=== PATIENT | female | born 1995 | race Caucasian/White ===

== ENCOUNTER 2019-06-23 09:58 | Emergency (ER) | payer OTHER ==
[2019-06-23] MEDS ORDERED: LIDOCAINE 2% VISCOUS SOLN 20 ML UDCUP PO ONE (11:08)
[2019-06-23] MEDS ORDERED: METOCLOPRAMIDE HCL ORAL SOLN 10 MG/10 ML UDCUP PO ONE (11:08)
[2019-06-23] MEDS ORDERED: MAG HYDROX/AL HYDROX/SIMETH SUSP 30 ML UDCUP PO ONE (11:08)
--- NOTE | 2019-06-23 11:10 | ER Document Report ---
ED Medical Screen (RME) - General Chief Complaint: Chest Pain Stated Complaint: CHEST PAIN Time Seen by Provider: 06/23/19 11:04 Mode of Arrival: Ambulatory Information source: Patient Notes: This 23-year-old female with history of questionable cardiac disease questionable valve leakage presents to the emergency department with complaints of epigastric pain that increases when she eats or drinks anything. Denies fever vomiting diarrhea. Reports symptoms started yesterday. I have greeted and performed a rapid initial assessment of this patient. A comprehensive ED assessment and evaluation of the patient, analysis of test results and completion of the medical decision making process will be conducted by additional ED providers. Dictation of this chart was performed using voice recognition software; therefore, there may be some unintended grammatical errors. TRAVEL OUTSIDE OF THE [place] IN LAST 30 DAYS: No - Related Data Allergies/Adverse Reactions: No Known Allergies Allergy (Verified 06/23/19 10:50) Past Medical History - Social History Chew tobacco use (# tins/day): No Frequency of alcohol use: Occasional Drug Abuse: None Physical Exam - Vital signs Vitals: Temp Pulse Resp BP Pulse Ox 98.2 F 64 18 129/70 H 98 06/23/19 10:33 06/23/19 10:33 06/23/19 10:33 06/23/19 10:33 06/23/19 10:33 Course - Vital Signs Vital signs: Temp Pulse Resp BP Pulse Ox 98.2 F 64 18 129/70 H 98 06/23/19 10:50 06/23/19 10:33 06/23/19 10:50 06/23/19 10:33 06/23/19 10:50
[2019-06-23 12:05] LABS: ABSOLUTE BASOPHILS # (AUTO) 0.1 10^3/uL (0.0-0.2); ABSOLUTE EOSINOPHILS # (AUTO) 0.2 10^3/uL (0.0-0.6); ABSOLUTE MONOCYTES (AUTO) 0.4 10^3/uL (0.1-1.4); BASOPHILS % (AUTO) 0.9 % (0-2); TOTAL CELLS COUNTED % (AUTO) 100 %
[2019-06-23 12:09] LABS: APPEARANCE,URINE CLEAR; BILIRUBIN,URINE NEGATIVE (NEGATIVE); COLOR,URINE YELLOW; GLUCOSE, URINE NEGATIVE (NEGATIVE); KETONES,URINE NEGATIVE (NEGATIVE); LEUKOCYTE ESTERASE,URINE NEGATIVE (NEGATIVE); NITRITE,URINE NEGATIVE (NEGATIVE); PROTEIN,URINE NEGATIVE (NEGATIVE); URINE SPECIFIC GRAVITY 1.011; UROBILINOGEN,URINE NEGATIVE mg/dL (<2.0)
[2019-06-23 12:18] LABS: ABSOLUTE LYMPHOCYTES (AUTO) 2.1 10^3/uL (0.5-4.7); ABSOLUTE NEUT (AUTO) 3.5 10^3/uL (1.7-8.2); EOSINOPHILS % (AUTO) 3.9 % (0-6); HEMATOCRIT 38.3 % (36.0-47.0); HEMOGLOBIN 12.7 g/dL (12.0-15.5); LYMPHOCYTES % (AUTO) 33.4 % (13-45); MEAN CORPUSCULAR HEMOGLOBIN 28.1 pg (27.0-33.4); MEAN CORPUSCULAR HGB CONC 33.1 g/dL (32.0-36.0); MEAN CORPUSCULAR VOLUME 85 fl (80-97); MONOCYTES % (AUTO) 6.2 % (3-13); PLATELET COUNT 240 10^3/uL (150-450); RED BLOOD COUNT 4.51 10^6/uL (3.72-5.28); RED CELL DISTRIBUTION WIDTH 13.7 % (11.5-14.0); SEGMENTED NEUTROPHILS % (AUTO) 55.6 % (42-78); WHITE BLOOD COUNT 6.3 10^3/uL (4.0-10.5)
[2019-06-23 12:22] LABS: ALBUMIN 4.4 g/dL (3.5-5.0); ALKALINE PHOSPHATASE 41 U/L (38-126); ANION GAP 11 (5-19); ASPARTATE AMINO TRANSFERASE 20 U/L (14-36); BILIRUBIN,DIRECT 0.1 mg/dL (0.0-0.4); BILIRUBIN,TOTAL 0.5 mg/dL (0.2-1.3); BLOOD UREA NITROGEN 10 mg/dL (7-20); CALCIUM 9.8 mg/dL (8.4-10.2); CARBON DIOXIDE 25 mmol/L (22-30); CHLORIDE 103 mmol/L (98-107); GLUCOSE 84 mg/dL (75-110); TOTAL PROTEIN 7.3 g/dL (6.3-8.2)
--- NOTE | 2019-06-23 14:54 | EKG REPORT ---
SEVERITY:- OTHERWISE NORMAL ECG - SINUS RHYTHM LATERAL Q WAVES, PROBABLY NORMAL VARIATION : Confirmed by: Steven Haywood MD 23-Jun-2019 14:52:21
[2019-06-23] MEDS ORDERED: ONDANSETRON 4 MG TAB.RAPDIS PO ONE (15:29)
[2019-06-23] MEDS ORDERED: KETOROLAC TROMETHAMINE 10 MG TABLET PO ONE (15:30)
--- NOTE | 2019-06-23 15:58 | RADIOLOGY REPORT (SQ) ---
EXAM DESCRIPTION: CHEST 2 VIEWS COMPLETED DATE/TIME: 06/23/2019 3:51 pm REASON FOR STUDY: chest pain COMPARISON: None. TECHNIQUE: Frontal and lateral radiographic views of the chest acquired. NUMBER OF VIEWS: Two view. LIMITATIONS: None. FINDINGS: LUNGS AND PLEURA: No opacities, masses or pneumothorax. No pleural effusion. MEDIASTINUM AND HILAR STRUCTURES: No masses or contour abnormalities. HEART AND VASCULAR STRUCTURES: Heart normal size. No evidence for failure. BONES: No acute findings. HARDWARE: None in the chest. OTHER: No other significant finding. IMPRESSION: NO SIGNIFICANT RADIOGRAPHIC FINDING IN THE CHEST. TECHNICAL DOCUMENTATION: JOB ID: [id number] [employer]- All Rights Reserved Reading location - IP/workstation name: [email or web address]
--- NOTE | 2019-06-23 16:32 | ER Document Report ---
Entered by ABDULLAHI LANTIGUA SCRIBE 06/23/19 1533 Acting as scribe for:SHUN POSADAS IV, MD ED General - General Chief Complaint: Chest Pain Stated Complaint: CHEST PAIN Time Seen by Provider: 06/23/19 11:04 Primary Care Provider: DOMINIC LOPEZ PA-C [Primary Care Provider] - Follow up as needed Mode of Arrival: Ambulatory Information source: Patient Notes: This 23-year-old female patient presents to the emergency department today with complaints of reproducible chest pain which she first noticed yesterday morning upon awakening. Patient states that the pain yesterday morning was very mild, stating that she took ibuprofen which completely took away the pain. Patient states today when she woke up the pain was worse than yesterday. Patient states she went to work today and shortly after getting to work the pain became "much more sharp and more severe" than yesterday. Patient's pain is reproducible with certain movements, breathing, coughing, eating, or drinking. Patient states she was given a GI cocktail in triage which "did nothing for the pain". Patient states "it only made my mouth numb". Patient states that she has had intermittent nausea but denies cough, vomiting, history of GERD, history of pancreatitis, or history of gallbladder issues. TRAVEL OUTSIDE OF THE [place] IN LAST 30 DAYS: No - Related Data Allergies/Adverse Reactions: No Known Allergies Allergy (Verified 06/23/19 10:50) Past Medical History - General Information source: Patient - Social History Smoking Status: Never Smoker Cigarette use (# per day): No Chew tobacco use (# tins/day): No Frequency of alcohol use: Occasional Drug Abuse: None Lives with: Family Family History: Reviewed & Not Pertinent Patient has suicidal ideation: No Patient has homicidal ideation: No Past Surgical History: Reports: Hx Tonsillectomy, Other - remote hx of mitral valve prolapse"corrected itself" per recent echo per pt Review of Systems - Review of Systems Constitutional: No symptoms reported EENT: No symptoms reported Cardiovascular: See HPI, Chest pain - reproducible Respiratory: See HPI, Hurts to breathe. denies: Cough Gastrointestinal: See HPI, Nausea. denies: Vomiting Genitourinary: No symptoms reported Female Genitourinary: No symptoms reported Musculoskeletal: No symptoms reported Skin: No symptoms reported Hematologic/Lymphatic: No symptoms reported Neurological/Psychological: No symptoms reported -: Yes All other systems reviewed and negative Physical Exam - Vital signs Vitals: Temp Pulse Resp BP Pulse Ox 98.2 F 64 18 129/70 H 98 06/23/19 10:33 06/23/19 10:33 06/23/19 10:33 06/23/19 10:33 06/23/19 10:33 - Notes Notes: Physical Exam: General: Alert, appears well but slightly anxious. HEENT: Normocephalic. Atraumatic. PERRL. Extraocular movements intact. Oropharynx clear. Neck: Supple. Non-tender. Respiratory: No respiratory distress. Clear and equal breath sounds bilaterally. Reproducible chest pain with deep breathing and coughing. No chest wall tenderness with palpation. Cardiovascular: Regular rate and rhythm. Abdominal: Normal Inspection. Non-tender. No distension. Normal Bowel Sounds. Back: No gross abnormalities. Extremities: Moves all four extremities. Upper extremities: Normal inspection. Normal ROM. Lower extremities: Normal inspection. No edema. Normal ROM. Neurological: Normal cognition. AAOx4. Normal speech. Psychological: Appears anxious Skin: Warm. Dry. Normal color. Course - Vital Signs Vital signs: Temp Pulse Resp BP Pulse Ox 97.5 F 68 16 113/65 100 06/23/19 15:37 06/23/19 15:37 06/23/19 15:37 06/23/19 15:37 06/23/19 15:37 - Laboratory Result Diagrams: 06/23/19 11:40 06/23/19 11:40 - Diagnostic Test Radiology reviewed: Reports reviewed - EKG Interpretation by Me Additional EKG results interpreted by me: 06/23/19 16:55 EKG performed on 06/23/2019 at 1003 hours was interpreted by this physician. Findings: Normal sinus rhythm, heart rate 67, normal axis, P waves preceding QRS complexes, QRS complexes appear narrow, there are no ST segment elevation or depression segments to indicate acute myocardial ischemia or infarction. Impression normal sinus rhythm with nonspecific ST segments. Discharge - Discharge Clinical Impression: Pleurisy Condition: Good Disposition: HOME, SELF-CARE Additional Instructions: Return to the Emergency Department without delay if any worse. Pleurisy Your chest pain has been diagnosed as pleuritis (pleurisy). This is an inflammation of the surface of the lung tissue. It can be caused by a virus or, occasionally, old scar tissue. It is painful but, for the most part, not a serious problem. This pain is usually made worse by deep breathing, coughing, or sudden movements of the upper body or arms. The treatment is relief of symptoms. It includes rest, antiinflammatory medication, and pain medicine. Resolution of the pain is usually rapid once antiinflammatory medication is started. Warning signs of a more serious problem include: a fever, shortness of breath, pain that radiates to your jaw, shoulders or arms, or coughing up bloody sputum. If any of these symptoms occur, call the physician at once. HOME CARE INSTRUCTIONS & INFORMATION: Thank you for choosing us for your medical needs. We hope you're satisfied with the care you received. After you leave, you must properly care for your problem and, at the same time, observe its progress. Any condition can change. Some illnesses can change rapidly over hours or days. If your condition worsens, return to the Emergency Department or see your physician promptly. ABOUT YOUR X-RAYS AND EKG'S: If you had an EKG or X-rays taken, they have been read by the Emergency Physician. The X-rays and EKG's will also be read by a Radiologist or Printing Shop Supervisor within 24 hours. If discrepancies are noted, you w ill be notified by telephone. Please be certain the ED has a correct telephone number & address where you can be reached. Also, realize that some fractures or abnormalities do not show up on initial X-rays. If your symptoms continue, see your physician. ABOUT YOUR LABORATORY TEST: If you had laboratory tests, the results have been reviewed by the Emergency Physician. Some test results (for example cultures) may not be available for several days. You will be contacted if any test result shows you need additional treatment. Please be certain the ED has a correct telephone number and address where you can be reached. ABOUT YOUR MEDICATIONS: You will receive instructions on how to take your medicine on the prescription label you receive. Additional information may be provided by the Pharmacy. If you have questions afterwards, call the ED for clarification or further instructions. Some prescribed medications may cause drowsiness. Do not perform tasks such as driving a car or operating machinery without consulting your Pharmacist. If you feel you need a refill of pain medic ation, your condition will need re-evaluation. Please do not call for a refill of any medication. ABOUT YOUR SIGNATURE: Signature of this document acknowledges to followin. Understanding that you received emergency treatment and that you may be released before al medical problems are known or treated. Please be certain the ED has a correct phone number & address where you can be reached. 2. Acknowledgement that you will arrange for follow-up care as recommended. 3. Authorization for the Emergency Physician to provide information to your follow-up Physician in order to maximize your care. AT ANY TIME, IF YOUR SYMPTOMS CHANGE SIGNIFICANTLY OR WORSEN OR YOU DEVELOP NEW SYMPTOMS, RETURN TO THE EMERGENCY DEPARTMENT IMMEDIATELY FOR RE-EVALUATION. OUR GOAL IS TO PROVIDE EXCELLENT MEDICAL CARE! WE HOPE THAT WE HAVE MET YOUR EXPECTATIONS DURING YOUR EMERGENCY DEPARTMENT VISIT AND THAT YOU FEEL YOU HAVE RECEIVED EXCELLENT CARE! Prescriptions: Ketorolac Tromethamine [Toradol 10 mg Tablet] 10 mg PO Q6HP PRN 3 Days #12 tablet PRN Reason: pain Ondansetron [Zofran Odt 4 mg Tablet] 1 - 2 tab PO Q4H PRN #15 tab.rapdis PRN Reason: For Nausea/Vomiting Forms: Return to Work Referrals: DOMINIC LOPEZ PA-C [Primary Care Provider] - Follow up as needed I personally performed the services described in the documentation, reviewed and edited the documentation which was dictated to the scribe in my presence, and it accurately records my words and actions.
[2019-06-23 17:19] VITALS: BP 98/67
== END 2019-06-23 17:17 | disposition home or self-care (01) ==
LOC: EDBD → ER 09:58
DX: R09.1 Pleurisy (principal); R07.1 Chest pain on breathing; R11.0 Nausea
CPT/HCPCS: 93005; 36415; 83690; 85025; 81025; 80053; 81001; 71046; 93010; S0119; J3490 ×2; 99285

== ENCOUNTER 2019-07-22 15:57 | Emergency (ER) | payer OTHER ==
--- NOTE | 2019-07-22 16:38 | ER Document Report ---
ED Medical Screen (RME) - General Chief Complaint: Chest Pain Stated Complaint: CHEST PAIN/NAUSEA Time Seen by Provider: 07/22/19 16:32 Primary Care Provider: DOMINIC LOPEZ PA-C [Primary Care Provider] - Follow up as needed Mode of Arrival: Ambulatory Information source: Patient Notes: 23-year-old female presents emergency department complaints of epigastric chest pain. Reports she had the same symptoms approximately 1 month ago was evaluated here. She did not follow-up with anybody. She reports the pain worsens when she eats. She reports she did receive a GI cocktail last time she was here but it made her feel worse. Denies fever vomiting diarrhea. I have greeted and performed a rapid initial assessment of this patient. A comprehensive ED assessment and evaluation of the patient, analysis of test results and completion of the medical decision making process will be conducted by additional ED providers. TRAVEL OUTSIDE OF THE [place] IN LAST 30 DAYS: No - Related Data Allergies/Adverse Reactions: No Known Allergies Allergy (Verified 07/22/19 16:18) Home Medications: BCP Past Medical History - Social History Chew tobacco use (# tins/day): No Frequency of alcohol use: Rare Drug Abuse: None Past Surgical History: Reports: Hx Tonsillectomy, Other - remote hx of mitral valve prolapse"corrected itself" per recent echo per pt Physical Exam - Vital signs Vitals: Temp Pulse Resp BP Pulse Ox 98.5 F 79 16 130/66 H 99 07/22/19 16:10 07/22/19 16:10 07/22/19 16:10 07/22/19 16:10 07/22/19 16:10 Course - Vital Signs Vital signs: Temp Pulse Resp BP Pulse Ox 98.5 F 79 16 130/66 H 99 07/22/19 16:10 07/22/19 16:10 07/22/19 16:10 07/22/19 16:10 07/22/19 16:10 Doctor's Discharge - Discharge Referrals: DOMINIC LOPEZ PA-C [Primary Care Provider] - Follow up as needed
[2019-07-22 17:03] LABS: ABSOLUTE BASOPHILS # (AUTO) 0.1 10^3/uL (0.0-0.2); ABSOLUTE EOSINOPHILS # (AUTO) 0.9 10^3/uL (0.0-0.6); ABSOLUTE LYMPHOCYTES (AUTO) 1.9 10^3/uL (0.5-4.7); ABSOLUTE MONOCYTES (AUTO) 0.5 10^3/uL (0.1-1.4); ABSOLUTE NEUT (AUTO) 3.2 10^3/uL (1.7-8.2); BASOPHILS % (AUTO) 0.9 % (0-2); EOSINOPHILS % (AUTO) 13.6 % (0-6); HEMOGLOBIN 12.5 g/dL (12.0-15.5); MEAN CORPUSCULAR HEMOGLOBIN 28.8 pg (27.0-33.4); MEAN CORPUSCULAR HGB CONC 33.8 g/dL (32.0-36.0); MEAN CORPUSCULAR VOLUME 85 fl (80-97); MONOCYTES % (AUTO) 7.3 % (3-13); PLATELET COUNT 253 10^3/uL (150-450); RED BLOOD COUNT 4.34 10^6/uL (3.72-5.28); RED CELL DISTRIBUTION WIDTH 14.5 % (11.5-14.0); SEGMENTED NEUTROPHILS % (AUTO) 49.2 % (42-78); TOTAL CELLS COUNTED % (AUTO) 100 %; WHITE BLOOD COUNT 6.5 10^3/uL (4.0-10.5)
[2019-07-22 17:08] LABS: APPEARANCE,URINE CLEAR; BILIRUBIN,URINE NEGATIVE (NEGATIVE); COLOR,URINE STRAW; GLUCOSE, URINE NEGATIVE (NEGATIVE); KETONES,URINE NEGATIVE (NEGATIVE); LEUKOCYTE ESTERASE,URINE NEGATIVE (NEGATIVE); NITRITE,URINE NEGATIVE (NEGATIVE); PROTEIN,URINE NEGATIVE (NEGATIVE); URINE SPECIFIC GRAVITY 1.008; UROBILINOGEN,URINE NEGATIVE mg/dL (<2.0)
[2019-07-22 17:22] LABS: ALBUMIN 4.2 g/dL (3.5-5.0); ALKALINE PHOSPHATASE 40 U/L (38-126); ANION GAP 11 (5-19); ASPARTATE AMINO TRANSFERASE 20 U/L (14-36); BILIRUBIN,DIRECT 0.3 mg/dL (0.0-0.4); BILIRUBIN,TOTAL 0.3 mg/dL (0.2-1.3); BLOOD UREA NITROGEN 10 mg/dL (7-20); CALCIUM 9.5 mg/dL (8.4-10.2); CARBON DIOXIDE 24 mmol/L (22-30); CHLORIDE 105 mmol/L (98-107); GLUCOSE 111 mg/dL (75-110); POTASSIUM 4.3 mmol/L (3.6-5.0); TOTAL PROTEIN 7.2 g/dL (6.3-8.2)
--- NOTE | 2019-07-22 18:25 | RADIOLOGY REPORT (SQ) ---
EXAM DESCRIPTION: CHEST 2 VIEWS COMPLETED DATE/TIME: 07/22/2019 6:16 pm REASON FOR STUDY: epigastric chest pain COMPARISON: 06/23/2019 TECHNIQUE: Frontal and lateral radiographic views of the chest acquired. NUMBER OF VIEWS: Two view. LIMITATIONS: None. FINDINGS: LUNGS AND PLEURA: No pneumothorax. No consolidation or pleural effusion. MEDIASTINUM AND HILAR STRUCTURES: Stable. HEART AND VASCULAR STRUCTURES: Stable. BONES: No acute findings. HARDWARE: None in the chest. OTHER: No other significant finding. IMPRESSION: NO ACUTE FINDINGS. TECHNICAL DOCUMENTATION: JOB ID: [id number] [employer]- All Rights Reserved Reading location - IP/workstation name: [email or web address]
[2019-07-22] MEDS ORDERED: FAMOTIDINE 20 MG TABLET PO ONE (19:04)
--- NOTE | 2019-07-22 19:10 | ER Document Report ---
ED General - General Chief Complaint: Chest Pain Stated Complaint: CHEST PAIN/NAUSEA Time Seen by Provider: 07/22/19 16:32 Primary Care Provider: DOMINIC LOPEZ PA-C [Primary Care Provider] - Follow up as needed Mode of Arrival: Ambulatory TRAVEL OUTSIDE OF THE [place] IN LAST 30 DAYS: No - HPI Onset: Other - over the last month Onset/Duration: Gradual Quality of pain: Burning, Sharp Severity: Moderate Associated symptoms: None Exacerbated by: Deep breathing, Food Relieved by: Denies Similar symptoms previously: No Recently seen / treated by doctor: Yes - 06/23/19 in this ER for same symptoms. Diagnosed with Pleurisy then. Notes: 23 year old female with no significant PMH here for epigastric abdominal pains and lower chest pains for the last month of so. The patient was seen in this ER on 06/23/19 and she was diagnosed with Pleuresy then. The patient was prescribed Toroadol and she says this initially seemed to work but then the pain just came back. The patient says eating makes the pain worse and so does taking a deep breath. The patient denies fevers, chills, sweats, nausea, vomiting, sweating. The patient has no history of gallstones or kidney stones. - Related Data Allergies/Adverse Reactions: No Known Allergies Allergy (Verified 07/22/19 16:18) Home Medications: BCP Past Medical History - General Information source: Patient - Social History Smoking Status: Never Smoker Chew tobacco use (# tins/day): No Frequency of alcohol use: Occasional Drug Abuse: None Family History: Reviewed & Not Pertinent Patient has suicidal ideation: No Patient has homicidal ideation: No - Past Medical History Cardiac Medical History: Reports: None Pulmonary Medical History: Reports: None EENT Medical History: Reports: None Neurological Medical History: Reports: None Endocrine Medical History: Reports: None Renal/ Medical History: Reports: None Malignancy Medical History: Reports: None GI Medical History: Reports: None Musculoskeletal Medical History: Reports None Skin Medical History: Reports None Psychiatric Medical History: Reports: None Traumatic Medical History: Reports: None Infectious Medical History: Reports: None Past Surgical History: Reports: Hx Tonsillectomy, Other - remote hx of mitral valve prolapse"corrected itself" per recent echo per pt Review of Systems - Review of Systems Constitutional: No symptoms reported EENT: No symptoms reported Cardiovascular: Chest pain Respiratory: No symptoms reported Gastrointestinal: Abdominal pain Genitourinary: No symptoms reported Female Genitourinary: No symptoms reported Musculoskeletal: No symptoms reported Skin: No symptoms reported Hematologic/Lymphatic: No symptoms reported Neurological/Psychological: No symptoms reported Physical Exam - Vital signs Vitals: Temp Pulse Resp BP Pulse Ox 98.5 F 79 16 130/66 H 99 07/22/19 16:10 07/22/19 16:10 07/22/19 16:10 07/22/19 16:10 07/22/19 16:10 - Notes Notes: GENERAL: Well-appearing, well-nourished and in no acute distress. HEAD: Atraumatic, normocephalic. EYES: Pupils equal round and reactive to light, extraocular movements intact, sclera anicteric, conjunctiva are normal. ENT: TMs normal, nares patent, oropharynx clear without exudates. Moist mucous membranes. NECK: Normal range of motion, supple without lymphadenopathy or JVD. LUNGS: Breath sounds clear to auscultation bilaterally and equal. No wheezes rales or rhonchi. HEART: Regular rate and rhythm without murmurs, rubs or gallops. ABDOMEN: Soft, mild tenderness in epigastric area, normoactive bowel sounds. No guarding, no rebound. No masses appreciated. EXTREMITIES: Normal range of motion, no pitting or edema. No clubbing or cyanosis. NEUROLOGICAL: Cranial nerves II through XII grossly intact. Normal speech, normal gait. PSYCH: Normal mood, normal affect. SKIN: Warm, Dry, normal turgor, no rashes or lesions noted. Course - Re-evaluation Re-evalutation: 07/22/19 19:21 The patient has been having off and on epigastric and low chest pain. Food and taking deep breaths seem to the make the pain worse. The patient sounds to me like she is having significant GERD vs an Ulcer but the patient could be having gallbladder issues as well. The patient is very low risk for ACS, she is PERC negative making PE unlikely, and her chest xrays have been clear. Patient's labs are unremarkable. Patient was told to use a PPI for 2 weeks and to follow up with a GI Doctor if symptoms persist. - Vital Signs Vital signs: Temp Pulse Resp BP Pulse Ox 98.5 F 79 16 130/66 H 99 07/22/19 16:10 07/22/19 16:10 07/22/19 16:10 07/22/19 16:10 07/22/19 16:10 - Laboratory Result Diagrams: 07/22/19 16:49 07/22/19 16:49 Laboratory results interpreted by me: 07/22/19 07/22/19 16:49 16:49 RDW 14.5 H Eos % (Auto) 13.6 H Absolute Eos (auto) 0.9 H Glucose 111 H Discharge - Discharge Clinical Impression: Epigastric abdominal pain Acid reflux Qualifiers: Esophagitis presence: without esophagitis Qualified Code(s): K21.9 - Gastro-eso phageal reflux disease without esophagitis Condition: Stable Disposition: HOME, SELF-CARE Instructions: Abdominal Pain ([facility]), Chest Pain of Unclear Cause ([facility]) Additional Instructions: Take Protonix as prescribed or buy another generic Proton Pump Inhibitor (PPI) and use it twice a day for 2 weeks. Follow up with a GI Doctor if symptoms persist for further work up and treatment. Prescriptions: Pantoprazole Sodium [Protonix] 40 mg PO BID #28 tablet. Referrals: DOMINIC LOPEZ PA-C [Primary Care Provider] - Follow up as needed MARTIN RIDLEY MD [ACTIVE STAFF] - Follow up as needed
[2019-07-22 19:48] VITALS: BP 111/75
--- NOTE | 2019-07-23 00:17 | EKG REPORT ---
SEVERITY:- OTHERWISE NORMAL ECG - SINUS RHYTHM LATERAL Q WAVES, PROBABLY NORMAL VARIATION : Confirmed by: Liset Mendez 23-Jul-2019 00:16:46
== END 2019-07-22 19:46 | disposition home or self-care (01) ==
LOC: ER 15:57
DX: R07.9 Chest pain, unspecified (principal); K21.9 Gastro-esophageal reflux disease without esophagitis; R11.0 Nausea; R10.13 Epigastric pain
CPT/HCPCS: 36415; 71046; 80053; 81001; 81025; 83690; 85025; 93005; 93010; 99284

== ENCOUNTER 2019-08-29 06:42 | Day surgery (SDC) | payer OTHER ==
[~2019-08-29 06:42] MED LIST: CEFAZOLIN 1 GM/D5W RTU 1 GM/50 ML RTUPB IV PRN; LACTATED RINGERS 1000 ML IV PRN; LIDOCAINE 0.5% INJ-PF (5 MG/ML) 50 ML SDV SUBCUT PRN
[2019-08-29] MEDS ORDERED: ONDANSETRON HCL INJ/PF 4 MG/2 ML SDV ONE (06:44)
[2019-08-29] MEDS ORDERED: MIDAZOLAM 2 MG/2 ML INJ ONE (06:44)
[2019-08-29] MEDS ORDERED: PROPOFOL INJ 200 MG/20 ML VIAL IV ONE (06:45)
[2019-08-29] MEDS ORDERED: MORPHINE SULFATE 10 MG/ML INJ ONE (06:45)
[2019-08-29] MEDS ORDERED: DEXAMETHASONE SOD PHOSPHATE INJ 4 MG/1 ML VIAL ONE (06:45)
[2019-08-29] MEDS ORDERED: LIDOCAINE 2% INJ (20 MG/ML) 20 ML MDV ONE (06:46)
[2019-08-29] MEDS ORDERED: BUPIVACAINE HCL 0.5 % INJ/PF 30 ML SDV ONE (06:46)
[2019-08-29] MEDS ORDERED: NORMAL SALINE INJ/PF 0.9% 10 ML SDV ONE (07:11)
[2019-08-29] MEDS ORDERED: POLYMYXIN B SULFATE INJ 500000 UNIT VIAL ONE (07:11)
[2019-08-29] MEDS ORDERED: BACITRACIN INJ 50,000 UNIT VIAL ONE (07:12)
[2019-08-29] MEDS: BUPIVACAINE INJ/PF LIPOSOME/PF 266 MG/20 ML SDV ONE ×2 (08:43→09:00)
--- NOTE | 2019-08-29 09:52 | Operative Report ---
Operative Report DATE OF SURGERY: 08/29/19 PREOPERATIVE DIAGNOSIS: Hallux abductovalgus left foot. POSTOPERATIVE DIAGNOSIS: Hallux abductovalgus left foot. OPERATION: Correction of bunion by Sal osteotomy with internal screw fixation left foot. SURGEON: MICHAEL WHITE WATER TECHNICIAN: AIME DIAZ ANESTHESIA: LMAC TISSUE REMOVED OR ALTERED: Bone, not sent to pathology. COMPLICATIONS: None. ESTIMATED BLOOD LOSS: Less than 0.1 mL INTRAOPERATIVE FINDINGS: Hypertrophied medial eminence first metatarsal head left foot. PROCEDURE: Following induction of IV and regional local anesthesia the left foot and leg were prepped and draped in the usual sterile manner. A pneumatic tourniquet was placed around the left ankle and inflated to 250 mm of mercury after exsanguination of the limb via Esmarch bandage. The following surgical procedure was then performed: Correction of bunion by Sal osteotomy with internal screw fixation left foot. Attention was directed to the dorsal aspect of the first metatarsal phalangeal joint of the left foot where an approximately 5 cm dorsal linear incision was made. The incision was deepened via sharp dissection and all bleeders were clamped and bovied as necessary for the purposes of hemostasis. A capsular incision was made in the same manner as the original skin incision and medial to the extensor hallucis longus tendon. The capsule was reflected medially and laterally from the bone thus bringing into view the hypertrophied medial eminence of the first metatarsal head. Utilizing a Chama sagittal saw the hypertrophied medial eminence was osteotomized parallel to the long axis of the bone and removed in toto from the wound. Attention was then directed into the first interspace, utilizing blunt dissection the transverse adductor tendon was identified and isolated, then sharply incised. Attention was then directed back to the medial aspect of the first metatarsal head, where utilizing a Rosaura sagittal saw an Sal osteotomy was performed with the apex being distal and the dorsal and plantar wings at 60 degree angle. The capital fragment was then distracted and shifted laterally on the metatarsal by approximately 5 mm. An x- ray was taken and it was noted that the first metatarsal phalangeal joint was now in a more anatomically correct position and that the sesamoids were directly underneath the first metatarsal head. The osteotomy was then temporarily fixated utilizing a 4 5 guidewire which was directed from distal dorsal to plantar proximal. The reamer measure was then threaded down the guidewire a hole was made for the head of the screw it was noted that a 24 mm 3.0 cancellus screw would be needed. Utilizing a 2.0 drill bit, the distal aspect of the osteotomy was overdrilled. The 24 mm 3.0 cancellus screw was then threaded down the guidewire and tightened down until the osteotomy was stably fixated. An x- ray was taken to ensure that the screw was the proper length and that 2 threads were through the plantar cortex of the metatarsal. Utilizing a Cardoz sagittal saw the redundant bone on the medial aspect of the first metatarsal head was osteotomized parallel to the bone and removed in toto from the wound. Utilizing a Cardoz crosscut rasp the medial aspect of the first metatarsal head was then rasped smooth. The wound was then flushed with copious amounts of an antibacterial saline solution. Bone wax was then applied to the medial aspect of the first metatarsal head. The capsule was then coaptated and maintained utilizing simple interrupted sutures of 3-0 Vicryl. The extensor hallucis longus tendon was tacked medially utilizing simple interrupted sutures of 3-0 Vicryl. The subcutaneous tissue was coaptated and maintained utilizing simple interrupted sutures of 4-0 Vicryl. 18 mL of Exparel were then injected along the incision site and the surgical site. The skin was then coaptated and maintained utilizing a running subcuticular suture of 5-0 Vicryl. Benzoin and Steri-Strips were then applied to the incision. A dry sterile dressing was then applied consisting of Gonzalez silk, 4 x 4's, conform, Kerlix, and Coflex. The pneumatic tourniquet was released it was noted that all digits were warm and viable and the patient was transferred to the recovery room.
--- NOTE | 2019-08-29 09:56 | PDOC DISCHARGE SUMMARY ---
Discharge Summary-[facility] Discharge Summary: Date of admission: August 29, 2019. Date of discharge: August 29, 2019. Preoperative diagnosis: Hallux abductovalgus left foot. Surgical procedure performed: Correction of bunion by Sal osteotomy with internal screw fixation left foot. Postoperative diagnosis: Hallux abductovalgus left foot. Surgeon: Ayesha Moon D.P.M. Political Anthropologist: Josué Byers D.P.M. The patient was admitted to [facility] with a chief complaint of a painful bunion on her left foot. She stated that she has had the bunion for a number of years and was progressively getting worse especially when she had to wear shoes. The patient tried conservative therapy with no cessation of her symptoms and wanted the problem surgically corrected. She underwent the above surgical procedure without any complications and was transferred to the recovery room. The patient was discharged with a surgical shoe, an ice pack, and postoperative instructions. The patient was discharged from [facility].
--- NOTE | 2019-08-29 10:01 | RADIOLOGY REPORT (SQ) ---
EXAM DESCRIPTION: FOOT LEFT 2 VIEWS; NO CHG FLUORO COMPLETED DATE/TIME: 08/29/2019 9:35 am REASON FOR STUDY: VELMA BUNIONECTOMY M20.12 HALLUX VALGUS (ACQUIRED), LEFT FOOT COMPARISON: None. FLUOROSCOPY TIME: 12 seconds Spot images saved to PACS. TECHNIQUE: Intra-operative images acquired during surgical procedure to evaluate progress. NUMBER OF IMAGES: 2 LIMITATIONS: None. FINDINGS: Fluoroscopy was provided for intraoperative procedure. Please refer to the operative repo rt for further discussion. IMPRESSION: IMAGE(S) OBTAINED DURING PROCEDURE. COMMENT: Quality ID [id number]: Final reports for procedures using fluoroscopy that document radiation exp osure indices, or exposure time and number of fluorographic images (if radiation exposure indices are not available) Please consult full operative report of the attending physician for description of the procedure. TECHNICAL DOCUMENTATION: JOB ID: [id number] 2010 [employer]- All Rights Reserved Reading location - IP/workstation name: [email or web address]
--- NOTE | 2019-08-29 10:01 | RADIOLOGY REPORT (SQ) ---
EXAM DESCRIPTION: FOOT LEFT 2 VIEWS; NO CHG FLUORO COMPLETED DATE/TIME: 08/29/2019 9:35 am REASON FOR STUDY: VELMA BUNIONECTOMY M20.12 HALLUX VALGUS (ACQUIRED), LEFT FOOT COMPARISON: None. FLUOROSCOPY TIME: 12 seconds Spot images saved to PACS. TECHNIQUE: Intra-operative images acquired during surgical procedure to evaluate progress. NUMBER OF IMAGES: 2 LIMITATIONS: None. FINDINGS: Fluoroscopy was provided for intraoperative procedure. Please refer to the operative repo rt for further discussion. IMPRESSION: IMAGE(S) OBTAINED DURING PROCEDURE. COMMENT: Quality ID [id number]: Final reports for procedures using fluoroscopy that document radiation exp osure indices, or exposure time and number of fluorographic images (if radiation exposure indices are not available) Please consult full operative report of the attending physician for description of the procedure. TECHNICAL DOCUMENTATION: JOB ID: [id number] 2010 [email or web address]- All Rights Reserved Reading location - IP/workstation name: [email or web address]
== END 2019-08-29 10:25 | disposition home or self-care (01) ==
LOC: SC 06:42
PROVIDERS: ATTEND Podiatrist Foot Surgery
DX: M20.12 Hallux valgus (acquired), left foot (principal); E07.9 Disorder of thyroid, unspecified; I49.9 Cardiac arrhythmia, unspecified; J45.990 Exercise induced bronchospasm; Z91.040 Latex allergy status
CPT/HCPCS: 28296; 73620; 01480; C1769; C1713; J2250; J3490 ×5; J0690; J1100; J2270; J2405; J2704; C9290